=== PATIENT | male | born 1985 | race Caucasian/White ===

== ENCOUNTER 2023-03-30 20:20 | Emergency (ER) | payer MEDICAID ==
[~2023-03-30] VITALS: Ht 182.9 cm; Wt 80.0 kg
[2023-03-30 20:24] VITALS: BP 137/79
[2023-03-30 21:56] LABS: BASOPHILS % (AUTO) 0.6 % (0.0-2.0); HEMATOCRIT 45.2 % (41-53); HEMOGLOBIN 14.4 g/dL (13.5-17.5); LYMPHOCYTES # (AUTO) 2.7 K/uL (1.0-4.8); MEAN CORPUSCULAR HEMOGLOBIN 26.2 pg (26.0-34.0); MEAN CORPUSCULAR HGB CONC 31.7 G/dL (31.0-37.0); MEAN CORPUSCULAR VOLUME 83 fL (80-100); MONOCYTES # (AUTO) 0.5 K/uL (0.1-1.0); MONOCYTES % (AUTO) 7.2 % (2.0-9.0); NEUTROPHILS # (AUTO) 3.7 K/uL (1.8-7.7); NEUTROPHILS % (AUTO) 52.2 % (40.0-70.0); PLATELET COUNT (AUTO) 263 K/uL (150-450); RED BLOOD CELL COUNT(AUTO) 5.48 MIL/uL (4.50-5.90); RED CELL DISTRIBUTION WIDTH 15.4 % (11.5-14.5)
[2023-03-30 22:07] LABS: ANION GAP 5 mmol/L (8-16); CALCIUM, TOTAL 8.9 mg/dL (8.8-10.5); CARBON DIOXIDE 32 mmol/L (22-29); CHLORIDE 105 mmol/L (98-107); CREATININE 1.17 mg/dL (0.60-1.30); GLOMERULAR FILTR. RATE CALC > 60 mL/min (>60); GLUCOSE,RANDOM 102 mg/dL (70-110); POTASSIUM 4.3 mmol/L (3.5-5.1); SODIUM SERUM 142 mmol/L (136-145)
[2023-03-30 22:11] LABS: AMPHET/METH SCREEN,URINE POSITIVE (NEGATIVE); BARBITURATE SCREEN, URINE NEGATIVE (NEGATIVE); BENZODIAZEPINES SCREEN,URINE NEGATIVE (NEGATIVE); CANNABINOID SCREEN,URINE NEGATIVE (NEGATIVE); COCAINE SCREEN,URINE NEGATIVE (NEGATIVE); METHADONE SCREEN, URINE NEGATIVE (NEGATIVE); OPIATE SCREEN,URINE NEGATIVE (NEGATIVE); PHENCYCLIDINE SCREEN,URINE NEGATIVE (NEGATIVE)
[2023-03-30 22:12] LABS: ALANINE AMINOTRANSFERASE 24 U/L (12-78); ALBUMIN 3.2 g/dL (3.4-5.0); ALKALINE PHOSPHATASE 63 U/L (46-116); ASPARTATE AMINOTRANSFERASE 26 U/L (15-37); BILIRUBIN,TOTAL 0.2 mg/dL (0.1-1.0); TOTAL PROTEIN, SERUM 6.3 g/dL (6.4-8.2)
[2023-03-30] MEDS ORDERED: OLANZapine 5 MG TABLET PO ONE (22:15)
== END 2023-03-31 00:05 | disposition home or self-care (01) ==
LOC: EMS 20:20
DX: F15.129 Other stimulant abuse with intoxication, unspecified (principal); F22 Delusional disorders; F17.210 Nicotine dependence, cigarettes, uncomplicated
CPT/HCPCS: 99283; 80053; 85025; 36415; 80307 ×2; G0480

== ENCOUNTER 2023-04-27 14:59 | Emergency (ER) | payer MEDICAID ==
[~2023-04-27] VITALS: Ht 182.9 cm; Wt 79.1 kg
[2023-04-27 15:03] VITALS: TEMP 97.9
[2023-04-27] MEDS ORDERED: IBUPROFEN 600 MG TABLET PO ONE (16:15)
[2023-04-27] MEDS ORDERED: CYCLOBENZAPRINE HCL 10 MG TABLET PO ONE (16:15)
[2023-04-27 18:45] VITALS: BP 124/77; PULSE 60; RESP 17
[2023-04-27] MEDS ORDERED: IBUP-1492 PO (19:08)
[2023-04-27] MEDS ORDERED: CYCL-448 PO (19:08)
== END 2023-04-27 19:47 | disposition home or self-care (01) ==
LOC: EMS 15:01
DX: M70.71 Other bursitis of hip, right hip (principal); F17.210 Nicotine dependence, cigarettes, uncomplicated; V00.131A Fall from skateboard, initial encounter; Y92.89 Other specified places as the place of occurrence of the external cause; Y99.8 Other external cause status
CPT/HCPCS: 73502; 99283

== ENCOUNTER 2023-07-07 23:50 | Emergency (ER) | payer MEDICAID ==
[~2023-07-07] VITALS: Ht 182.9 cm; Wt 80.5 kg
[~2023-07-07 23:50] MED LIST: CYCL-448 PO; IBUP-1492 PO
[2023-07-08 00:38] VITALS: TEMP 97.9
[2023-07-08] MEDS ORDERED: KETOROLAC TROMETHAMINE 30 MG/ML VIAL IVP ONE (01:00)
[2023-07-08] MEDS ORDERED: DiphenhydrAMINE HCL 50 MG/ML VIAL IVP ONE (01:00)
[2023-07-08] MEDS ORDERED: SODIUM CHLORIDE 0.9% 1,000 ML IV ONE (01:00)
[2023-07-08] MEDS ORDERED: METOCLOPRAMIDE HCL 5 MG/ML 2 ML VIAL IVP ONE (01:00)
[2023-07-08 03:00] VITALS: BP 121/69; PULSE 77; RESP 16
== END 2023-07-08 03:20 | disposition home or self-care (01) ==
LOC: EMS 23:52
DX: R51.9 Headache, unspecified (principal); F17.210 Nicotine dependence, cigarettes, uncomplicated
CPT/HCPCS: 99285; 96374; 70450; 96361; 96375; J1200; J1885; J2765; J7030

== ENCOUNTER 2023-08-23 16:39 | Emergency (ER) | payer MEDICAID ==
[~2023-08-23] VITALS: Ht 177.8 cm; Wt 81.8 kg
[2023-08-23 16:43] VITALS: BP 146/65; PULSE 76; RESP 18; TEMP 97.7
== END 2023-08-23 19:57 | disposition left against medical advice (07) ==
LOC: EMS 16:39
DX: M54.9 Dorsalgia, unspecified (principal); Z53.21 Procedure and treatment not carried out due to patient leaving prior to being seen by health care provider
CPT/HCPCS: 99281; Z7502